=== PATIENT | female | born 2000 | race Caucasian/White ===

== ENCOUNTER 2023-11-08 16:07 | Emergency (ER) | payer OTHER ==
[~2023-11-08] VITALS: Ht 157.5 cm; Wt 93.8 kg
[~2023-11-08 16:07] MED LIST: HYDROCODON-ACE1 EA10 PO; PERCOCET 5-3251 EACH PO
--- OUTSIDE RECORDS SUMMARY | 2023-11-08 16:11 | XMS ---
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 Elena has no Care Guidelines for this patient. Karla VISIT COUNT (12 MO.) 2 [facility] TOTAL 2 NOTE: Visits indicate total known visits. ED/C VISIT TRACKING (12 MO.) 11/08/2023 16:08 [facility] [place] TYPE: Emergency COMPLAINT: - RT WRIST INJURY 01/31/2023 14:03 [facility] [place] TYPE: Emergency COMPLAINT: - UPPER/MID BACK PAIN DIAGNOSES: - Allergy status to narcotic agent - Animal-rider injured by fall from or being thrown from horse in noncollision accident, initial encounter - Contusion of lower back and pelvis, initial encounter - Contusion of middle back wall of thorax, initial encounter - Dorsalgia, unspecified INPATIENT VISIT TRACKING (12 MO.) No inpatient visits to display in this time frame [email or web address]
[2023-11-08 17:40] VITALS: BP 124/92
== END 2023-11-08 17:40 | disposition home or self-care (01) ==
LOC: ED 16:07
DX: S63.501A Unspecified sprain of right wrist, initial encounter (principal); W55.12XA Struck by horse, initial encounter; Z88.5 Allergy status to narcotic agent
CPT/HCPCS: 73110; 99283-25

== ENCOUNTER 2025-02-18 19:00 | Emergency (ER) | payer OTHER ==
[~2025-02-18] VITALS: Ht 157.5 cm; Wt 96.6 kg
[2025-02-18 19:43] LABS: BLOOD/HGB, URINE MODERATE (Negative); KETONE, URINE SMALL (Negative); LEUK ESTERASE, URINE NEGATIVE (negative); NITRITE, URINE NEGATIVE (negative)
[2025-02-18 19:52] LABS: BACTERIA, URINE 1+ /hpf (negative); CASTS, URINE NONE SEEN \\lpf; CRYSTALS, URINE AMORPHOUS URATES 2+ (0-1+); EPITHELIAL CELLS, URINE SQUAMOUS 2+ /lpf (0-1+); REFLEX CULTURE, URINE No (No)
[2025-02-18] MEDS ORDERED: LIDOCAINE HCL 4% 1 EACH PATCH TD ONE (21:00)
[2025-02-18] MEDS ORDERED: IBUPROFEN 800 MG TAB PO ONE (21:00)
[2025-02-18] MEDS ORDERED: HYDROCODONE/ACETA 5/325 TAB PO ONE (21:00)
[2025-02-18] MEDS ORDERED: LIDODERM1 EACH TOP (21:03)
[2025-02-18 21:11] VITALS: BP 124/85
[2025-02-18] MEDS ORDERED: HYDROCODONE BIT/ACETAMINOPHEN 5/325 MG 1 TAB HOME.PACK PO ONE (21:15)
== END 2025-02-18 21:10 | disposition home or self-care (01) ==
LOC: ED 19:00
PROVIDERS: Internal Medicine
DX: S70.01XA Contusion of right hip, initial encounter (principal); W55.12XA Struck by horse, initial encounter; Z88.5 Allergy status to narcotic agent
CPT/HCPCS: 73502; 81001; 84703; 99284; A9270